=== PATIENT | male | born 1970 | race Native Hawaiian/Other Pacific Islander ===

== ENCOUNTER 2016-11-08 19:59 | Emergency (ER) | payer BC ==
[~2016-11-08] VITALS: Ht 188 cm; Wt 97.5 kg
[2016-11-08 20:51] VITALS: BP 145/98; TEMP 98.3
== END 2016-11-08 21:05 | disposition home or self-care (01) ==
LOC: ED 19:59
DX: K40.90 Unilateral inguinal hernia, without obstruction or gangrene, not specified as recurrent (principal); N43.3 Hydrocele, unspecified; X50.9XXA Other and unspecified overexertion or strenuous movements or postures, initial encounter
CPT/HCPCS: 99281

== ENCOUNTER 2016-11-09 15:12 | Outpatient (CLI) | payer BC | END 2016-11-09 16:15 | disposition home or self-care (01) | LOC: US 15:12 | DX: N43.3 Hydrocele, unspecified (principal) ==

== ENCOUNTER 2021-08-29 11:37 | Outpatient (CLI) | payer BC | END 2021-08-29 19:04 | disposition home or self-care (01) | LOC: CT 11:37 | PROVIDERS: ATTEND Nurse Practitioner Family | DX: N20.2 Calculus of kidney with calculus of ureter (principal) ==